=== PATIENT | female | born 1980 | race Caucasian/White ===

== ENCOUNTER 2024-11-16 10:45 | Outpatient (CLI) | payer OTHER, SELFPAY ==
--- NOTE | ~2024-11-16 | US_ITS ---
EXAMINATION: US pelvic complete w TV INDICATION: Pelvic pain Comparison:No prior studies for comparison. TECHNIQUE: Multiple transabdominal and endovaginal sonographic images of the pelvis performed. FINDINGS: The uterus measures 8.8 x 5.2 x 6.6 cm. There are multiple uterine fibroids, largest measur ing 2.9 cm. The endometrial complex measures 9 mm. The right ovary measures 1.8 x 1 x 1.4 cm and the left ovary measures 2.5 x 3 x 2.5 cm. There are gregorio ateral adnexal masses measuring 4.8 cm on the right and 3.5 cm on the left. Origin of these masses to be ovarian or more likely uterine. There are small follicles in each ovary. There is a 2.1 cm left o varian cyst. Normal doppler signal in both ovaries. There is no free fluid in the pelvis. There are no abnormal masses seen on either side. IMPRESSION: 1. Multiple uterine fibroids. Bilateral adnexal masses which may represent an exophytic fibroids or o varian masses measuring 4.8 cm on the right and 3.5 cm on the left. Correlation with MRI of the pelvi s with contrast recommended. Reviewed, dictated and finalized at location A. IMPRESSION: 1. Multiple uterine fibroids. Bilateral adnexal masses which may represent an e xophytic fibroids or ovarian masses measuring 4.8 cm on the right and 3.5 cm on the left. Correlation with MRI of the pelvis with contrast recommended.
== END 2024-11-16 10:46 | disposition home or self-care (01) ==
DX: D25.9 Leiomyoma of uterus, unspecified (principal)
CPT/HCPCS: 76830; 76856